=== PATIENT | female | born 1960 | race Caucasian/White ===

== ENCOUNTER 2025-01-04 09:55 | Day surgery (SDC) | payer OTHER ==
[~2025-01-04] VITALS: Ht 170.2 cm; Wt 90.8 kg
[~2025-01-04 09:55] MED LIST: Balanced Salt Epinephrine Irrigation Solution 500 mL IR SCH; Moxifloxacin HCL 0.5 MG/0.1 ML 0.4MLSYR RIGHTEYE SCH; Ondansetron 4 MG SoluTab MM PRN; PHENYLEPHRINE\\TROPICAMIDE\\TETRACAINE OPHTHALMIC DILATING SOLN RIGHTEYE PRN; Povidone-Iodine 450 DROP/30 ML Solution ONE; Povidone-Iodine 450 DROP/30 ML Solution RIGHTEYE SCH; Tetracaine HCl/Pf 0.5% Opth Soln 4 ml ONE
[2025-01-04] MEDS ORDERED: LOSA50 PO (10:11)
[2025-01-04] MEDS ORDERED: Carvedilol12.5 MG PO (10:11)
[2025-01-04] MEDS ORDERED: Inderal60 MG PO (10:11)
[2025-01-04] MEDS ORDERED: LINZESS145 MCG PO (10:12)
[2025-01-04] MEDS ORDERED: QULIPTA60 MG PO (10:12)
--- NOTE | 2025-01-04 10:16 | NUR ---
01/04/25 Ibis Zhang CALL LIGHT WITHIN REACH. PT ON CONTINOUS PULSE OXIMETER FOR MONITORING
--- NOTE | 2025-01-04 10:49 | NUR ---
01/04/25 1049 Steph Patel N 169/101 100 10L BLOW BY O2 63 20
== END 2025-01-04 11:14 | disposition home or self-care (01) ==
LOC: ORSCSDS 09:55
PROVIDERS: Student in an Organized Health Care Education/Training Program
PROC: 08RJ3JZ Replacement of Right Lens with Synthetic Substitute, Percutaneous Approach (ICD-10-PCS; principal; 2025-01-04 11:30)
DX: H25.813 Combined forms of age-related cataract, bilateral (principal); I10 Essential (primary) hypertension; Z79.899 Other long term (current) drug therapy
CPT/HCPCS: A9270; V2632

== ENCOUNTER 2025-01-12 08:20 | Day surgery (SDC) | payer OTHER ==
[~2025-01-12] VITALS: Ht 170.2 cm; Wt 91.5 kg
[~2025-01-12 08:20] MED LIST changes: +Carvedilol12.5 MG PO; +Inderal60 MG PO; +LINZESS145 MCG PO; +LOSA50 PO; +Moxifloxacin HCL 0.5 MG/0.1 ML 0.4MLSYR LEFTEYE SCH; -Moxifloxacin HCL 0.5 MG/0.1 ML 0.4MLSYR RIGHTEYE SCH; +PHENYLEPHRINE\\TROPICAMIDE\\TETRACAINE OPHTHALMIC DILATING SOLN LEFTEYE PRN; -PHENYLEPHRINE\\TROPICAMIDE\\TETRACAINE OPHTHALMIC DILATING SOLN RIGHTEYE PRN; +Povidone-Iodine 450 DROP/30 ML Solution LEFTEYE SCH; -Povidone-Iodine 450 DROP/30 ML Solution ONE; -Povidone-Iodine 450 DROP/30 ML Solution RIGHTEYE SCH; +QULIPTA60 MG PO; -Tetracaine HCl/Pf 0.5% Opth Soln 4 ml ONE
--- NOTE | 2025-01-12 09:10 | NUR ---
01/12/25 0910 Ekaterina Toscano PT REPORTS 5/10 ANXIETY LEVEL, VALIUM 10MG GIVEN AT 0902.
[2025-01-12] MEDS ORDERED: Tetracaine HCl 0.5% Opth Soln 15 ml LEFTEYE ONE (09:34)
--- NOTE | 2025-01-12 09:39 | NUR ---
01/12/25 0939 Steph Patel 100% 10L BLOW BY O2 69 20 171/109
--- NOTE | 2025-01-12 09:54 | NUR ---
01/12/25 0954 MAHESH CORNELIUS PT 152/105 POSTOP PT 157/105 PREOP
== END 2025-01-12 10:04 | disposition home or self-care (01) ==
LOC: ORSCSDS 08:20
PROVIDERS: Student in an Organized Health Care Education/Training Program
PROC: 08RK3JZ Replacement of Left Lens with Synthetic Substitute, Percutaneous Approach (ICD-10-PCS; principal; 2025-01-12 10:00)
DX: H25.813 Combined forms of age-related cataract, bilateral (principal); I10 Essential (primary) hypertension; Z79.899 Other long term (current) drug therapy
CPT/HCPCS: A9270; V2632